=== PATIENT | male | born 1975 | race African-American/Black ===

== ENCOUNTER 2018-01-15 10:59 | Outpatient (CLI) | payer SELFPAY ==
--- NOTE | 2018-01-15 18:51 | ULT ---
LEFT LOWER EXTREMITY VENOUS DOPPLER ULTRASOUND: 01/15/18 Ultrasonography of the left lower extremity was performed. All deep veins were freely compressible fr om groin to ankle. No echogenic clot was seen. There was normal doppler responses to augmentation man euvers. Thus, there was no sign of deep venous thrombosis. The technologist did show a small fluid collection in the left lateral calf. Though difficult to damon ure, it appears to be a hematoma. IMPRESSION: 1. No evidence of DVT. 2. Hematoma in the left lateral calf POS: HOME
== END 2018-01-15 11:00 | disposition home or self-care (01) ==
LOC: BURULT 10:59
PROVIDERS: ATTEND Physician Assistant
DX: Z04.3 Encounter for examination and observation following other accident (principal); S80.12XA Contusion of left lower leg, initial encounter; W22.8XXA Striking against or struck by other objects, initial encounter

== ENCOUNTER 2020-09-21 11:32 | Outpatient (CLI) | payer OTHER | END 2020-09-21 11:33 | disposition home or self-care (01) | LOC: BUREKG 11:32 | PROVIDERS: ATTEND Physician Assistant | DX: Z01.818 Encounter for other preprocedural examination (principal) | CPT/HCPCS: 71046; 93005; 93010 ==

== ENCOUNTER 2021-09-05 08:53 | Outpatient (CLI) | payer OTHER ==
[2021-09-05 09:35] LABS: #Basophils 0.1 thou/uL (0.0-0.2); #Eosinphils 0.3 thou/uL (0.0-0.7); #Lymphocytes 1.5 thou/uL (1.20-3.40); #Monocytes 0.5 thou/uL (0.11-0.59); #Neutrophils 2.7 thou/uL (1.40-6.50); %Basophils 2.2 % (0.0-1.0); %Eosinophils 6.1 % (0.0-10.0); %Lymphocytes 28.3 % (21.0-51.0); %Monocytes 10.5 % (0.0-10.0); Hemoglobin 14.5 g/dL (14.0-18.0); Mean Corpuscular HGB CONC 31.7 g/dL (32.0-36.0); Mean Corpuscular Hemoglobin 30.1 pg (27.0-31.0); Mean Platelet Volume 8.2 fL (7.4-10.4); Platelet Count 225 thou/uL (130-400); RBC Distribution Width 13.7 % (11.5-14.5); Red Blood Cell (RBC) Count 4.82 mill/uL (4.70-6.10); White Blood Cell (WBC) Count 5.2 thou/uL (4.8-10.8)
[2021-09-05 12:00] LABS: Anion Gap 16 mmol/L (10-20); BUN (Urea Nitrogen) 28 mg/dL (8.9-20.6); Calc. Creatinine Clearance 0 mL/min (70-130); Carbon Dioxide 26 mmol/L (22-29); Chloride 106 mmol/L (98-107); Potassium 4.7 mmol/L (3.5-5.1); Sodium 143 mmol/L (136-145)
[2021-09-05 12:01] LABS: ALT (SGPT) 17 U/L (8-55); AST (SGOT) 19 U/L (5-34); Albumin 4.3 g/dL (3.5-5.0); Alkaline Phosphatase 44 U/L (40-110); Bilirubin, Total 0.4 mg/dL (0.2-1.2); Calcium 9.3 mg/dL (7.8-10.44); Cardiac Risk 2.9 (Less than 4.5); Cholesterol 165 mg/dl (< 200 Desired); Globulin 2.8 g/dL (2.4-3.5); Glucose 112 mg/dL (70-105); HDL Cholesterol 57 mg/dL (>60 Neg Risk); LDL Cholesterol, Calculated 102 mg/dL; Protein, Total 7.1 g/dL (6.0-8.3); Triglycerides 29 mg/dL (Less than 150)
== END 2021-09-05 08:54 | disposition home or self-care (01) ==
LOC: BURLAB 08:53
PROVIDERS: ATTEND Physician Assistant
DX: E11.9 Type 2 diabetes mellitus without complications (principal)
CPT/HCPCS: 36415; 80050; 80061